=== PATIENT | male | born 1990 ===

== ENCOUNTER 2018-11-14 14:35 | Outpatient (CLI) | payer OTHER | END 2018-11-14 14:39 | disposition home or self-care (01) | LOC: RAD 14:35 | DX: R10.9 Unspecified abdominal pain (principal) ==

== ENCOUNTER 2018-11-14 15:11 | Outpatient (CLI) | payer OTHER | END 2018-11-14 15:20 | disposition home or self-care (01) | LOC: LAB 15:11 | DX: R10.9 Unspecified abdominal pain (principal) ==

== ENCOUNTER 2021-07-01 11:30 | Emergency (ER) | payer OTHER ==
[~2021-07-01] VITALS: Ht 182.9 cm; Wt 102.1 kg
[2021-07-01] MEDS ORDERED: [UNRECOGNIZED DRUG - OTHER] PO (11:46)
== END 2021-07-01 12:37 | disposition home or self-care (01) ==
LOC: ER 11:30
DX: J35.01 Chronic tonsillitis (principal)